=== PATIENT | male | born 1970 | race Two or more races ===

== ENCOUNTER 2019-02-07 23:32 | Emergency (ER) | payer BC ==
--- NOTE | 2019-02-08 00:07 | Diagnostic Imaging Report ---
PATIENT MR#: [id number] PATIENT PATIENT NAME: THEA VIVAR DATE OF : 1970 REFERRING PHYSICIAN: Anna Whitaker EXAM DATE: 02/07/2019 ACCESSION NUMBER: [id number] EXAM DESCRIPTION: FINGER 2 VIEWS OR MORE EXAMINATION: FINGER 2 VIEWS OR MORE HISTORY: cut distal left index finger with power saw (Hx) / --------- Note time : 02/08/2019 12:01:00 AM User : Jannet Arredondo cut distal left index finger with power saw (DICOM Hx) (DICOM Hx) COMPARISON: None FINDINGS/ IMPRESSION: There is a small comminuted fracture of the volar aspect of the base of the 2nd distal phalanx. There is no evidence of radiopaque foreign body. Read by: Adelso Conway Transcribed by: Transcribed Date: Electronically signed by: Adelso Conway Date signed: 02/08/2019 12:06:30 AM
[2019-02-08] MEDS: LIDOCAINE HCL 1% MDV 200MG/20ML VIAL IM ONE (00:24)
--- NOTE | 2019-02-08 00:43 | ED Physician Documentation ---
General Adult - HISTORIAN Historian: patient - HPI Stated Complaint: laceration Chief Complaint: Laceration/Recheck/Suture Additional Information: 48 year old male presents with finger laceration; he was cutting wood with a power saw and it got away from him and cut the distal end of the left index finger. He does not know when last tetanus was. Neurovasculars are intact; will get xray. Onset: minutes Timing: still present Severity: moderate Modifying Factors: power saw - ROS CONST: no problems EYES/ENT: none CVS/RESP: none GI/: none MS/SKIN/LYMPH: none - PAST HX Past History: none Other History: none Immunizations: UTD. denies: tetanus Allergies/Adverse Reactions: Allergies Allergy/AdvReac Type Severity Reaction Status Date / Time Penicillins Allergy Verified 02/08/19 00:16 Home Medications: Ambulatory Orders Medication Instructions Recorded Clindamycin HCl [Cleocin HCl] 300 mg PO QID #28 capsule 02/08/19 - SOCIAL HX Smoking History: non-smoker Alcohol Use: occasionally Drug Use: none - FAMILY HX Family History: No - VITAL SIGNS Vital Signs: Vital Signs Temp Pulse Resp BP Pulse Ox 58 L 14 122/92 99 02/08/19 01:30 02/08/19 01:30 02/08/19 01:30 02/08/19 01:30 - REVIEWED ASSESSMENTS Nursing Assessment Reviewed: Yes Vitals Reviewed: Yes Procedures Wound Location: other (LEFT INDEX FINGER) Wound Length: 4cm Wound's Depth, Shape: irregular, contused tissue Wound Explored: no foreign body removed Irrigated w/ Saline (ccs): 250 Betadine Prep?: Yes Anesthesia: 1% Lidocaine Volume of Anesthetic: 5ML Wound Debrided: moderate Wound Repaired With: sutures Suture Size/Type: 5:0 Number of Sutures: 10 Layer Closure?: No Sterile Dressing Applied?: Yes Splint Applied?: Yes (FINGER SPLINT) Progress: PATIENT TOLERATED WELL ED Results Lab/Radiology - Orders Orders: ED Orders Category Date Time Status Apply/change dressing NOW Care 02/07/19 23:47 Active Cleanse with NS and Betadine 1T Care 02/07/19 23:47 Active Finger Splint 1T Care 02/07/19 23:47 Active FINGER 2 VIEWS OR MORE [RAD] Stat Exams 02/07/19 Completed Clindamycin HCl [Cleocin] Med 02/08/19 00:38 Discontinued 600 mg PO NOW ONE Diph,Pertuss(Acell),Tet Vac/Pf [Adacel] Med 02/07/19 23:46 Discontinued 0.5 ml IM .ONCE ONE Ibuprofen [Advil] Med 02/08/19 00:38 Discontinued 600 mg PO NOW ONE Lidocaine 1% 20ml ([place]) [Xylocaine] Med 02/07/19 23:47 Discontinued 10 mg IM NOW ONE General Adult Physical Exam - PHYSICAL EXAM GENERAL APPEARANCE: mild distress EENT: eye inspection normal, ENT inspection normal, pharynx normal NECK: normal inspection, supple RESPIRATORY: breath sounds normal CVS: heart sounds normal SKIN: warm/dry, other (laceration to the left index finger) EXTREMITIES: normal range of motion NEURO: oriented X3, CN's nml as tested, motor nml, sensation nml, mood/affect nml, cognition normal Discharge Clincal Impression: Finger laceration with complication, Fracture of phalanx of left index finger Prescriptions: Clindamycin HCl [Cleocin HCl] 300 mg PO QID #28 capsule Additional Instructions: Small fracture noted; wear splint until healed 7-10 days Take antibiotic as directed; Clindamycin 300 mg by mouth 4 times a day for 7 days Alternate Tylenol and Ibuprofen as needed for discomfort Keep dressing clean and dry; apply antibiotic ointment; dressing; and splint Watch for signs of infection; redness, drainage, fever or chills. Because of fracture; keep finger elevated, ice, and keep splint on. Follow up with PCP in 7-10 days to have wound rechecked and sutures removed. Condition: Good Disposition: 01 HOME, SELF-CARE Decision to Admit: NO Decision Time: 01:30
[2019-02-08] MEDS: DIPH,PERTUSS(ACELL),TET VAC/PF 0.5 ML DISP.SYRIN IM ONE (01:00)
[2019-02-08] MEDS: IBUPROFEN 200 MG TABLET PO ONE (01:05)
[2019-02-08] MEDS: CLINDAMYCIN HCL 150 MG CAPSULE PO ONE (01:05)
[2019-02-08 06:39] VITALS: BP 122/92
== END 2019-02-08 01:07 | disposition home or self-care (01) ==
LOC: ED 23:34
DX: S61.211A Laceration without foreign body of left index finger without damage to nail, initial encounter (principal); S62.632A Displaced fracture of distal phalanx of right middle finger, initial encounter for closed fracture; W31.2XXA Contact with powered woodworking and forming machines, initial encounter; Y93.89 Activity, other specified
CPT/HCPCS: 12002; 73140; 90471; 90715; 96372; 99283; 99284; A9270